=== PATIENT | male | born 1995 | race Two or more races ===

== ENCOUNTER 2025-09-20 06:04 | Emergency (ER) | payer MEDICAID, OTHER ==
[~2025-09-20] VITALS: Ht 175.3 cm; Wt 74.8 kg
[2025-09-20] MEDS: IV NS 0.9% 1,000 ML BAG IV ONE ×2 (06:32→07:30)
[2025-09-20 06:44] LABS: PLATELET COUNT (AUTO) 257 K/uL (150-450); RED BLOOD CELL COUNT(AUTO) 5.14 MIL/uL (4.5-6.0); RED CELL DISTRIBUTION WIDTH 14.8 % (11.5-15.0); WHITE BLOOD COUNT (AUTO) 10.3 K/uL (4.3-11.0)
[2025-09-20 06:59] LABS: ASPARTATE AMINOTRANSFERASE 8 U/L (15-37); CALCIUM, SERUM 9.2 mg/dL (8.5-10.1); CREATININE 0.8 mg/dL (0.6-1.3); SODIUM SERUM 142 mmol/L (136-145); TOTAL PROTEIN, SERUM 7.6 g/dL (6.4-8.2); UREA NITROGEN, BLOOD 8 mg/dL (7-18)
[2025-09-20 07:22] LABS: LACTIC ACID 3.0 mmol/L (0.4-2.0)
[2025-09-20 07:29] LABS: APPEARANCE,URINE CLEAR (CLEAR); BLOOD, URINE 2+ Ery/uL (NEGATIVE); LEUKOCYTE ESTERASE ,URINE 3+ (NEGATIVE); NITRITE, URINE POSITIVE (NEGATIVE); UGLUCOSE NEGATIVE (NEGATIVE)
[2025-09-20 07:39] LABS: ADD URINE CULTURE YES
[2025-09-20] MEDS: MORPHINE SULFATE INJ 2 MG/ML DISP.SYRIN IV ONE (08:00)
[2025-09-20] MEDS: CEFTRIAXONE 1 G in IV D5W 50 ML IV ONE (08:00)
[2025-09-20] MEDS ORDERED: MORPHINE SULFATE INJ 2 MG/ML DISP.SYRIN ONE (08:28)
[2025-09-20] MEDS: VANCOMYCIN 1 GM in IV D5W 250 ML IV ONE (09:00)
[2025-09-20] MEDS ORDERED: DOSING PER PHARMACY-VANCOMYCIN IV XX PRN (12:30)
[2025-09-20] MEDS ORDERED: MAGNESIUM HYDROXIDE 30 ML UDC PO PRN (12:30)
[2025-09-20] MEDS ORDERED: ZOLPIDEM TARTRATE 5 MG TABLET PO PRN (12:30)
[2025-09-20] MEDS ORDERED: DOSING PER PHARMACY-CEFEPIME IVPB XX PRN (12:30)
[2025-09-20] MEDS ORDERED: MAG HYDROX/AL HYDROX/SIMETH 30 ML UDC PO PRN (12:30)
[2025-09-20] MEDS ORDERED: ONDANSETRON HCL/PF 4 MG/2 ML VIAL IVP PRN (12:30)
[2025-09-20] MEDS ORDERED: HYDROCODONE/APAP 5/325MG TABLET PO PRN (12:30)
[2025-09-20] MEDS ORDERED: Z GUARD REMEDY 4 OZ OINT TP PRN (12:30)
[2025-09-20] MEDS ORDERED: IV NS 0.9% 1,000 ML IV PRN (12:30)
[2025-09-20] MEDS ORDERED: ENOXAPARIN SODIUM 40 MG/0.4 ML DISP.SYRIN SQ SCH (12:30)
[2025-09-20] MEDS ORDERED: ACETAMINOPHEN 325 MG TABLET PO PRN (12:30)
[2025-09-20] MEDS ORDERED: CEFEPIME 2 GM in IV D5W 100 ML IV SCH ×2 (13:00→14:00)
[2025-09-20 13:45] VITALS: BP 141/76; TEMP 98.3; O2SAT 98
[2025-09-20] MEDS ORDERED: VANCOMYCIN HCL 1.25 GM in IV D5W 250 ML IV SCH (14:00)
[2025-09-20] MEDS ORDERED: VANCOMYCIN 750 MG in IV D5W 250 ML IV SCH (14:00)
[2025-09-21] MEDS ORDERED: PANTOPRAZOLE 40 MG TABLET.DR PO SCH (07:30)
== END 2025-09-20 13:52 | disposition short-term general hospital (02) ==
LOC: ER 06:06
DX: T83.518A Infection and inflammatory reaction due to other urinary catheter, initial encounter (principal); A41.9 Sepsis, unspecified organism; Q05.9 Spina bifida, unspecified; G82.20 Paraplegia, unspecified; N31.9 Neuromuscular dysfunction of bladder, unspecified; I10 Essential (primary) hypertension; N39.0 Urinary tract infection, site not specified; Y84.6 Urinary catheterization as the cause of abnormal reaction of the patient, or of later complication, without mention of misadventure at the time of the procedure
CPT/HCPCS: 99291; 96365; 96367; 96361; 96375; 51702; 85025; 80048; 87077 ×2; 87040 ×2; 87086; 83605; 83690; 80076; 87186 ×2; 81001; 36415; J0696; J3373; J7060; J7030 ×2; J7050; J2270; A4223; J0692; J3374